=== PATIENT | female | born 1945 | race Caucasian/White ===

== ENCOUNTER 2017-06-17 05:38 | Day surgery (SDC) | payer OTHER ==
[~2017-06-17 05:38] MED LIST: ALTOPREV40 MG; BISOPROLOL FUMAR5 MG; ECOTRIN81 MG; LISINOPRIL20 MG; METFORMIN HCL500 MG; NORVASC2.5 M1
[2017-06-17] MEDS ORDERED: NAPROXEN SODIU550 M1 PO (10:59)
== END 2017-06-17 15:45 | disposition home or self-care (01) ==
LOC: CIR.AMB 05:38
DX: N84.0 Polyp of corpus uteri (principal)